=== PATIENT | male | born 1960 | race Caucasian/White ===

== ENCOUNTER → 2017-04-30 | Outpatient (CLI) | payer MEDICARE ==
--- NOTE | 2017-04-30 10:32 | US ---
EXAMINATION TYPE: US abdomen complete DATE OF EXAM: 04/30/2017 COMPARISON: NONE CLINICAL HISTORY: R10.9 ABD PAIN. RUQ pain, NPO EXAM MEASUREMENTS: Liver Length: 15.2 cm Gallbladder Wall: 0.2 cm CBD: 0.7 cm CHD: 0.5 cm Spleen: 8.3 cm Right Kidney: 10.0 x 4.8 x 4.4 cm Left Kidney: 10.3 x 4.6 x 5.0 cm Pancreas: wnl as visualized, main pancreatic duct = 2.5 mm WNL Liver: heterogenous, echogenic Gallbladder: appears enlarged Evidence for sonographic Ortiz's sign: neg CBD: Minimally dilated CHD: wnl Spleen: wnl Right Kidney: wnl Left Kidney: wnl Upper IVC: wnl Abd Aorta: No AAA seen The visualized liver is heterogeneously hyperechoic. The intrahepatic portion of the IVC and visuali zed abdominal aorta are within normal limits. There is no evidence of cholelithiasis. Common bile d uct is unremarkable. The visualized portions of the pancreas are homogenous. The spleen is unremark able. Kidneys are symmetric and free of hydronephrosis. No renal lesions are seen. IMPRESSION: No shadowing mobile gallstones or ultrasound evidence for acute cholecystitis.
== END | disposition home or self-care (01) ==
LOC: RADUSWWP 08:11
PROVIDERS: ATTEND Family Medicine
DX: R10.9 Unspecified abdominal pain (principal)
CPT/HCPCS: 76700

== ENCOUNTER → 2019-05-04 | Outpatient (CLI) | payer MEDICARE ==
--- NOTE | 2019-05-04 12:30 | CTL ---
EXAMINATION TYPE: CT Low Dose Lung DATE OF EXAM ORDERED: 05/04/2019 HISTORY: Personal history tobacco use. Lung cancer screening CT DLP: 60.[address] CTDI: 1.7 mGy Automated exposure control for dose reduction was used. SCREENING VISIT: 1 COMPARISON: None TECHNIQUE: Low dose computed tomography scan was performed through the chest at 1 mm thick sections a nd reconstructed images in the coronal plane at [address] DIAGNOSTIC QUALITY: Satisfactory FINDINGS: LUNG NODULES: Present, detailed below: Left lung a nodule with Nodule Size in Millimeters 9 mm was visualized with Nodule Type: Solid that is Nodule state: New in nature on image # CT Image slide number [id number] nodule shows smooth margins LUNGS: COPD: Severity: Severe Fibrosis: Severity: Mild Lymph nodes: Nonenlarged Other findings: Some upper lobe scarring, bullous emphysematous changes present RIGHT PLEURAL SPACE: Effusion: None Calcification: None Thickening: None Pneumothorax: None LEFT PLEURAL SPACE: Effusion: None Calcification: None Thickening: None Pneumothorax: None HEART: Heart Size: Small Coronary calcification: Moderate Pericardial effusion: None OTHER FINDINGS: Upper abdomen: Unremarkable Bony thorax: There is some thoracic spondylosis Supraclavicular region: Within normal limits Other: IMPRESSION: Probably suspicious Severe emphysematous changes are present. FOLLOW UP CT CHEST RECOMMENDATION: Low dose chest CT 3 months, consider follow-up PET/CT CT LUNG RAD: 4A
== END | disposition home or self-care (01) ==
LOC: RADCTMAIN 11:21
PROVIDERS: ATTEND Family Medicine
DX: Z12.2 Encounter for screening for malignant neoplasm of respiratory organs (principal); J43.9 Emphysema, unspecified; Z87.891 Personal history of nicotine dependence

== ENCOUNTER 2022-11-17 19:22 | Inpatient (IN) | payer MEDICARE ==
[~2022-11-17 19:22] MED LIST: IPRATROPIUM-ALBUTEROL 3 ML NEB INHALATION STA
[2022-11-17] MEDS ORDERED: IPRATROPIUM-ALBUTEROL 3 ML NEB INHALATION STA ×2 (19:35→20:00)
[2022-11-17 19:37] LABS: Glucose,Whole Blood 244 mg/dL (70-110)
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
--- NOTE | 2022-11-17 19:49 | XR ---
EXAMINATION TYPE: XR chest 1V portable DATE OF EXAM: 11/17/2022 7:37 PM COMPARISON: CT chest 05/04/2019. TECHNIQUE: XR chest 1V portable Frontal view of the chest. CLINICAL INDICATION:Male, 62 years old with history of dyspnea; FINDINGS: Lungs/Pleura: There is a large right pneumothorax. No evidence of focal consolidation or pleural effu krishna emphysema changes seen within the lungs bilaterally. Pulmonary vascularity: Unremarkable. Heart/mediastinum: Cardiomediastinal silhouette is unremarkable. Musculoskeletal: No acute osseous pathology. IMPRESSION: Large right pneumothorax.
[2022-11-17 19:55] LABS: Basophils # (A) 0.1 k/uL (0-0.2); Basophils % (A) 0 %; Eosinophils # (A) 0.4 k/uL (0-0.7); Eosinophils % (A) 3 %; HCT 39.7 % (39.0-53.0); HGB 12.9 gm/dL (13.0-17.5); Lymphocytes # (A) 2.9 k/uL (1.0-4.8); Lymphocytes % (A) 20 %; MCH 30.1 pg (25.0-35.0); MCHC 32.5 g/dL (31.0-37.0); MCV 92.7 fL (80.0-100.0); Mean Platelet Volume 6.9; Monocytes # (A) 0.6 k/uL (0-1.0); Monocytes % (A) 4 %; Neutrophils # (A) 10.2 k/uL (1.3-7.7); Neutrophils % (A) 71 %; Platelet Count 503 k/uL (150-450); RBC 4.28 m/uL (4.30-5.90); RDW 12.6 % (11.5-15.5); VBG PH 7.25 (7.31-7.41); WBC 14.3 k/uL (3.8-10.6)
[2022-11-17 20:08] LABS: INR 0.9 (<1.2); Partial Thromboplastin Time 22.3 sec (22.0-30.0); Prothrombin Time 9.5 sec (9.0-12.0)
[2022-11-17 20:12] LABS: ALT 21 U/L (4-49); AST 26 U/L (17-59); African American GFR (CKD) >90 (>60 ml/min/1.73 sqM); Albumin 4.4 g/dL (3.5-5.0); Alkaline Phosphatase 119 U/L (38-126); Anion Gap 11 mmol/L; Blood Urea Nitrogen 24 mg/dL (9-20); Calcium 9.6 mg/dL (8.4-10.2); Carbon Dioxide 33 mmol/L (22-30); Chloride 92 mmol/L (98-107); Glucose 230 mg/dL (74-99); Non-African American GFR(CKD) >90 (>60 ml/min/1.73 sqM); Sodium 136 mmol/L (137-145); Total Bilirubin 0.2 mg/dL (0.2-1.3); Total Protein 7.2 g/dL (6.3-8.2)
[2022-11-17] MEDS ORDERED: MORPHINE SULFATE 4 MG/ML SYRINGE IV STA ×2 (20:27→21:26)
[2022-11-17] MEDS ORDERED: LIDOCAINE 1% INJ 10MG/ML (10 ML MDV) SQ STA (20:27)
--- NOTE | 2022-11-17 21:10 | XR ---
EXAMINATION TYPE: XR chest 1V DATE OF EXAM: 11/17/2022 8:55 PM COMPARISON: Chest radiographs from TECHNIQUE: XR chest 1V Frontal view of the chest. CLINICAL INDICATION:Male, 62 years old with history of chest tube; FINDINGS: Lungs/Pleura: There is worsening of the right pneumothorax with the right upper lobe appearing more i nferior on today's exam with more consolidation in the lung base medially. There is increased lucency of the lung apices. Pulmonary vascularity: Unremarkable. Heart/mediastinum: Cardiomediastinal silhouette is unremarkable. Musculoskeletal: No acute osseous pathology. Other findings: None Lines/Tubes: Right thoracotomy tube in place with worsening of the pneumothorax. IMPRESSION: 1. Right thoracotomy tube in place with worsening of the pneumothorax with increased density of the lower lobes suggesting worsening atelectasis as well as the upper lobe as well visualized on this exa m. 2. There remains COPD changes.
[2022-11-17] MEDS ORDERED: NALOXONE 0.4 MG/ML 1 ML VIAL IV PRN (21:37)
[2022-11-17] MEDS ORDERED: HYDROmorphone 0.5 MG/0.5 ML SYRINGE IVP PRN (21:37)
[2022-11-17] MEDS: SODIUM CHLORIDE 0.9% 1,000 ML IV SCH (21:54)
[2022-11-18 01:40] LABS: Glucose,Whole Blood 100 mg/dL (70-110)
[2022-11-18] MEDS ORDERED: IPRATROPIUM-ALBUTEROL 3 ML NEB INHALATION PRN (02:24)
[2022-11-18] MEDS: MORPHINE SULFATE 4 MG/ML SYRINGE IV PRN ×2 (02:53→06:55)
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
[2022-11-18] MEDS: HYDROmorphone 1 MG/ML 1 ML SYRINGE IVP PRN ×5 (05:04→22:58)
[2022-11-18 06:12] LABS: Basophils % (A) 0 %; Eosinophils # (A) 0.2 k/uL (0-0.7); Eosinophils % (A) 3 %; HCT 37.3 % (39.0-53.0); HGB 11.7 gm/dL (13.0-17.5); Lymphocytes # (A) 1.5 k/uL (1.0-4.8); Lymphocytes % (A) 19 %; MCH 29.1 pg (25.0-35.0); MCHC 31.4 g/dL (31.0-37.0); MCV 92.9 fL (80.0-100.0); Monocytes # (A) 0.5 k/uL (0-1.0); Monocytes % (A) 7 %; Neutrophils # (A) 5.2 k/uL (1.3-7.7); Neutrophils % (A) 69 %; Platelet Count 362 k/uL (150-450); RBC 4.01 m/uL (4.30-5.90); RDW 12.8 % (11.5-15.5); WBC 7.5 k/uL (3.8-10.6)
[2022-11-18 06:23] LABS: African American GFR (CKD) >90 (>60 ml/min/1.73 sqM); Anion Gap 6 mmol/L; Blood Urea Nitrogen 24 mg/dL (9-20); Calcium 8.9 mg/dL (8.4-10.2); Carbon Dioxide 33 mmol/L (22-30); Chloride 97 mmol/L (98-107); Glucose 98 mg/dL (74-99); Non-African American GFR(CKD) >90 (>60 ml/min/1.73 sqM); Potassium 4.3 mmol/L (3.5-5.1); Sodium 136 mmol/L (137-145)
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
[2022-11-18] MEDS: PANTOPRAZOLE 40 MG TABLET PO SCH ×2 (08:32→20:35)
--- NOTE | 2022-11-18 08:33 | XR ---
EXAMINATION TYPE: XR chest 1V portable DATE OF EXAM: 11/18/2022 COMPARISON: 11/17/2022 HISTORY: Chest tube TECHNIQUE: Single frontal view of the chest is obtained. FINDINGS: Right-sided chest tube is seen and there is interval reduction in the size of the pneumoth orax which now measures approximately 25%. Diffuse emphysematous changes are seen. Heart size is norm al. Metallic stenting suspected overlying the left hilum. No pleural effusion. No interstitial edema. Atherosclerotic change aorta. IMPRESSION: 1. Right-sided pneumothorax reduced in size now measuring approximately 25%. 2. Diffuse emphysema.
[2022-11-18] MEDS: IPRATROPIUM-ALBUTEROL 3 ML NEB INHALATION SCH ×4 (08:52→20:21)
[2022-11-18] MEDS: SYMBICORT 160-4.5 MCG INHALER INHALATION SCH ×2 (08:52→20:21)
[2022-11-18] MEDS ORDERED: FAMOTIDINE 20 MG/2 ML VIAL IV SCH (09:00)
[2022-11-18] MEDS: lisinopriL 10 MG TAB PO SCH (09:30)
--- NOTE | 2022-11-18 10:00 | XR ---
EXAMINATION TYPE: XR chest 1V portable DATE OF EXAM: 11/18/2022 HISTORY: Follow-up pneumothorax COMPARISON: Study from 4:03 AM same day TECHNIQUE: Single view of the chest is submitted. FINDINGS: Right-sided chest tube appears to have been repositioned. There is persistence of right-sided pneumot horax however slightly improved with right apical pleural distance of 2.9 cm currently versus 4.6 cm previously. Pneumothorax estimated at between 15 and 20%. Demonstrated are scattered senescent parenchymal change. There is no evidence for focal infiltrate. The heart is stable. Hilar and mediastinal structures are within normal limits. Degenerative changes are seen of the dorsal spine. IMPRESSION: 1. Persistent but improving right apical pneumothorax.
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
[2022-11-18] MEDS: SODIUM CHLORIDE 0.9% 1,000 ML IV SCH (13:44)
[2022-11-18] MEDS: ACETAMINOPHEN TAB 325 MG TAB PO PRN (16:11)
[2022-11-18] MEDS ORDERED: SYMBICORT 160-4.5 MCG INHALER INHALATION SCH (20:00)
[2022-11-18] MEDS: HEPARIN SODIUM,PORCINE/PF 5,000 UNIT/0.5 ML SYRINGE SQ SCH (20:35)
[2022-11-19] MEDS: SODIUM CHLORIDE 0.9% 1,000 ML IV SCH ×2 (00:30→12:19)
[2022-11-19] MEDS: HYDROmorphone 1 MG/ML 1 ML SYRINGE IVP PRN ×7 (02:22→22:44)
[2022-11-19 06:08] LABS: HGB 11.2 gm/dL (13.0-17.5); MCH 31.1 pg (25.0-35.0); MCHC 32.9 g/dL (31.0-37.0); MCV 94.7 fL (80.0-100.0); Mean Platelet Volume 6.7; Platelet Count 332 k/uL (150-450); RBC 3.59 m/uL (4.30-5.90); RDW 12.7 % (11.5-15.5); WBC 7.5 k/uL (3.8-10.6)
[2022-11-19 06:20] LABS: African American GFR (CKD) >90 (>60 ml/min/1.73 sqM); Anion Gap 1 mmol/L; Blood Urea Nitrogen 16 mg/dL (9-20); Calcium 8.5 mg/dL (8.4-10.2); Carbon Dioxide 37 mmol/L (22-30); Chloride 97 mmol/L (98-107); Glucose 103 mg/dL (74-99); Non-African American GFR(CKD) >90 (>60 ml/min/1.73 sqM); Potassium 4.5 mmol/L (3.5-5.1); Sodium 135 mmol/L (137-145)
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
[2022-11-19] MEDS: IPRATROPIUM-ALBUTEROL 3 ML NEB INHALATION SCH ×4 (08:00→19:26)
[2022-11-19] MEDS ORDERED: NON FORMULARY DRUG (Tiotropium Bromide [Spiriva Handihaler] 18 MCG Cap.W.Dev) INHALATION SCH (08:00)
[2022-11-19] MEDS: SYMBICORT 160-4.5 MCG INHALER INHALATION SCH ×2 (08:02→19:27)
--- NOTE | 2022-11-19 08:17 | XR ---
EXAMINATION TYPE: XR chest 1V portable DATE OF EXAM: 11/19/2022 COMPARISON: 11/18/2022 HISTORY: Right pneumothorax TECHNIQUE: Single frontal view of the chest is obtained. FINDINGS: Right sided Thora vent noted. There is interval slight increase size of the pneumothorax n ow measuring 25%. Diffuse emphysematous changes. Heart size normal. Atherosclerotic change aorta. Met allic stents overlying the left hilum. IMPRESSION: 1. COPD. The pneumothorax appears to measure approximately 25% exam . This is slightly increased in s ize from prior exam
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
[2022-11-19] MEDS: PANTOPRAZOLE 40 MG TABLET PO SCH ×2 (08:57→20:22)
[2022-11-19] MEDS: HEPARIN SODIUM,PORCINE/PF 5,000 UNIT/0.5 ML SYRINGE SQ SCH ×2 (08:57→20:22)
[2022-11-19] MEDS: ACETAMINOPHEN TAB 325 MG TAB PO PRN ×2 (08:57→20:22)
[2022-11-19] MEDS: lisinopriL 10 MG TAB PO SCH (08:57)
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
[2022-11-20] MEDS: HYDROmorphone 1 MG/ML 1 ML SYRINGE IVP PRN ×7 (02:09→23:10)
[2022-11-20] MEDS: SODIUM CHLORIDE 0.9% 1,000 ML IV SCH (04:30)
[2022-11-20 06:08] LABS: Basophils % (A) 0 %; Eosinophils # (A) 0.2 k/uL (0-0.7); Eosinophils % (A) 3 %; HCT 32.9 % (39.0-53.0); HGB 10.7 gm/dL (13.0-17.5); Lymphocytes # (A) 1.3 k/uL (1.0-4.8); Lymphocytes % (A) 22 %; MCH 30.8 pg (25.0-35.0); MCHC 32.7 g/dL (31.0-37.0); MCV 94.2 fL (80.0-100.0); Mean Platelet Volume 7.2; Monocytes # (A) 0.5 k/uL (0-1.0); Monocytes % (A) 8 %; Neutrophils % (A) 66 %; Platelet Count 336 k/uL (150-450); RBC 3.49 m/uL (4.30-5.90); RDW 12.6 % (11.5-15.5)
[2022-11-20 06:17] LABS: African American GFR (CKD) >90 (>60 ml/min/1.73 sqM); Anion Gap 1 mmol/L; Blood Urea Nitrogen 11 mg/dL (9-20); Calcium 8.6 mg/dL (8.4-10.2); Carbon Dioxide 37 mmol/L (22-30); Chloride 95 mmol/L (98-107); Glucose 103 mg/dL (74-99); Non-African American GFR(CKD) >90 (>60 ml/min/1.73 sqM); Sodium 133 mmol/L (137-145)
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
[2022-11-20] MEDS: lisinopriL 10 MG TAB PO SCH (08:28)
[2022-11-20] MEDS: HEPARIN SODIUM,PORCINE/PF 5,000 UNIT/0.5 ML SYRINGE SQ SCH ×2 (08:28→19:55)
[2022-11-20] MEDS: PANTOPRAZOLE 40 MG TABLET PO SCH ×2 (08:28→19:55)
[2022-11-20] MEDS: ACETAMINOPHEN TAB 325 MG TAB PO PRN ×2 (08:28→16:31)
--- NOTE | 2022-11-20 08:43 | XR ---
EXAMINATION TYPE: XR chest 1V portable DATE OF EXAM: 11/20/2022 COMPARISON: 11/19/2022 HISTORY: Right pneumothorax TECHNIQUE: Single frontal view of the chest is obtained. FINDINGS: There is near complete resolution of right-sided pneumothorax. Diffuse emphysematous epps es is seen in the persistent left lower lobe infiltrate and tiny bilateral pleural thickening or effu krishna.. The cardiac silhouette size is within normal limits. The osseous structures are intact. Jossy st tube stable. IMPRESSION: 1. Severe emphysema with interval near complete resolution of right-sided pneumothorax. Chest tube st able.
[2022-11-20] MEDS: SYMBICORT 160-4.5 MCG INHALER INHALATION SCH ×2 (08:44→20:14)
[2022-11-20] MEDS: IPRATROPIUM-ALBUTEROL 3 ML NEB INHALATION SCH ×4 (08:44→20:14)
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
[2022-11-21] MEDS: HYDROmorphone 1 MG/ML 1 ML SYRINGE IVP PRN ×6 (03:45→23:40)
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
[2022-11-21] MEDS: HEPARIN SODIUM,PORCINE/PF 5,000 UNIT/0.5 ML SYRINGE SQ SCH ×2 (07:52→20:15)
[2022-11-21] MEDS: lisinopriL 10 MG TAB PO SCH (07:52)
[2022-11-21] MEDS: PANTOPRAZOLE 40 MG TABLET PO SCH ×2 (07:52→20:15)
[2022-11-21] MEDS: IPRATROPIUM-ALBUTEROL 3 ML NEB INHALATION SCH ×4 (08:13→20:02)
[2022-11-21] MEDS: SYMBICORT 160-4.5 MCG INHALER INHALATION SCH ×2 (08:14→20:02)
--- NOTE | 2022-11-21 09:16 | P.PN ---
Subjective Progress Note Date: 11/20/22 Pt evaluated in the ICU, on 8 LPM O2 via NC. CXR today showing resolution of pneumothorax. He continues to endorse shortness of breath, notes minimal cough and denies hemoptysis. Labs are stable. Objective - Vital Signs Vital signs: Vital Signs Temp 98.7 F 11/21/22 07:54 Pulse 97 11/21/22 08:24 Resp 18 11/21/22 07:54 BP 165/80 11/21/22 07:54 Pulse Ox 95 11/21/22 08:17 FiO2 80 11/18/22 08:50 Intake & Output 11/20/22 11/21/22 11/21/22 18:59 06:59 18:59 Intake Total 225 240 Output Total 0 850 Balance 225 -850 240 Intake: IV 225 Sodium Chloride 0.9% 1, 225 000 ml @ 75 mls/hr IV . [id number] [facility] Rx#:[id number] Oral 240 Output: Urine 0 850 Other: Voiding Method Urinal Urinal # Voids 2 - Exam Gen: thin, elderly NAD CV: RRR, no murmur Lungs: diminished air entry throughout Abd: soft, nontender, non distended - Labs CBC & Chem 7: 11/20/22 05:51 11/20/22 05:51 Assessment and Plan Plan: Continue with present medical regimen, continue home inhaler, lisinopril. Continue with protonix. Chest tube per pulmonology
--- NOTE | 2022-11-21 09:36 | XR ---
EXAMINATION TYPE: XR chest 1V portable DATE OF EXAM: 11/21/2022 COMPARISON: 11/20/2022 HISTORY: Follow-up pneumothorax TECHNIQUE: Single frontal view of the chest is obtained. FINDINGS: There is a small approximately 5% right apical pneumothorax with chest tube in position. D iffuse emphysematous changes are seen and there is metallic stents overlying the left hilum. Atherosc lerotic change aorta. Heart size normal. No overt failure. Arthropathy of the shoulders. IMPRESSION: 1. 5% right apical pneumothorax. 2. Diffuse emphysema.
[2022-11-21] MEDS: ACETAMINOPHEN TAB 325 MG TAB PO PRN (12:01)
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
[2022-11-22] MEDS: HYDROmorphone 1 MG/ML 1 ML SYRINGE IVP PRN ×7 (04:03→23:39)
--- NOTE | 2022-11-22 07:25 | XR ---
EXAMINATION TYPE: XR chest 1V portable DATE OF EXAM: 11/22/2022 HISTORY: Follow-up pneumothorax. COMPARISON: 11/21/2022 TECHNIQUE: Single view of the chest is submitted. FINDINGS: Right apical pleural catheter is in place. Pneumothorax persists although is smaller in size and is e stimated at less than 5%. Moderate emphysematous changes seen bilaterally. There is no evidence for focal infiltrate. The heart is stable. Hilar and mediastinal structures are within normal limits. Degenerative changes are seen of the dorsal spine. IMPRESSION: 1. Right apical pleural catheter is in place. Pneumothorax persists although is smaller in size and is estimated at less than 5%.
[2022-11-22] MEDS ORDERED: CYCLOBENZAPRINE 10 MG TAB PO PRN (08:16)
[2022-11-22] MEDS ORDERED: MAGNESIUM HYDROXIDE 2,400 MG/10 ML CUP PO PRN (08:19)
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
[2022-11-22] MEDS: IPRATROPIUM-ALBUTEROL 3 ML NEB INHALATION SCH ×4 (08:28→20:59)
[2022-11-22] MEDS: SYMBICORT 160-4.5 MCG INHALER INHALATION SCH ×2 (08:28→20:59)
[2022-11-22] MEDS: lisinopriL 10 MG TAB PO SCH (09:53)
[2022-11-22] MEDS: PANTOPRAZOLE 40 MG TABLET PO SCH ×2 (09:53→20:12)
[2022-11-22] MEDS: HEPARIN SODIUM,PORCINE/PF 5,000 UNIT/0.5 ML SYRINGE SQ SCH ×2 (09:54→20:12)
[2022-11-22 10:09] LABS: Chloride 90 mmol/L (98-107); Glucose 154 mg/dL (74-99); Potassium 4.7 mmol/L (3.5-5.1); Sodium 135 mmol/L (137-145)
[2022-11-22 10:10] LABS: African American GFR (CKD) >90 (>60 ml/min/1.73 sqM); Blood Urea Nitrogen 20 mg/dL (9-20); Calcium 9.1 mg/dL (8.4-10.2); Non-African American GFR(CKD) >90 (>60 ml/min/1.73 sqM)
[2022-11-22 10:16] LABS: Anion Gap 7 mmol/L
[2022-11-22 10:43] LABS: Carbon Dioxide 38 mmol/L (22-30)
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
[2022-11-22] MEDS: SENNOSIDES-DOCUSATE SODIUM 1 EACH TAB PO SCH (20:12)
[2022-11-22] MEDS: MONTELUKAST 10 MG TAB PO SCH (20:12)
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
[2022-11-23] MEDS: HYDROmorphone 1 MG/ML 1 ML SYRINGE IVP PRN ×6 (04:33→21:19)
--- NOTE | 2022-11-23 07:10 | XR ---
EXAMINATION TYPE: XR chest 2V DATE OF EXAM: 11/23/2022 HISTORY: Shortness of breath. COMPARISON: 11/22/2022 TECHNIQUE: Single view of the chest is submitted. FINDINGS: Significant enlargement in right-sided pneumothorax estimated at 40%. Right apical pleural catheter r edemonstrated. There is no evidence for focal infiltrate. Hyperinflation compatible with COPD. The heart is stable. Hilar and mediastinal structures are within normal limits. Degenerative changes are seen of the dorsal spine. IMPRESSION: 1. Significant enlargement in right-sided pneumothorax estimated at 40%. Right apical pleural cathet er redemonstrated. Miroslava the patient's nurse was notified of this finding via telephone at 7:07 AM on 11/23/2022
[2022-11-23] MEDS: SYMBICORT 160-4.5 MCG INHALER INHALATION SCH ×2 (07:53→20:27)
[2022-11-23] MEDS: IPRATROPIUM-ALBUTEROL 3 ML NEB INHALATION SCH ×4 (07:53→20:27)
[2022-11-23] MEDS: HEPARIN SODIUM,PORCINE/PF 5,000 UNIT/0.5 ML SYRINGE SQ SCH ×2 (08:25→21:18)
[2022-11-23] MEDS: lisinopriL 10 MG TAB PO SCH (08:25)
[2022-11-23] MEDS: PANTOPRAZOLE 40 MG TABLET PO SCH ×2 (08:25→21:19)
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
[2022-11-23] MEDS: ACETAMINOPHEN TAB 325 MG TAB PO PRN ×2 (11:40→21:18)
[2022-11-23] MEDS ORDERED: HYDROCORTISONE 1% CREAM 30 GM TUBE TOPICAL PRN (11:50)
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
[2022-11-23] MEDS: MONTELUKAST 10 MG TAB PO SCH (21:19)
[2022-11-23] MEDS: SENNOSIDES-DOCUSATE SODIUM 1 EACH TAB PO SCH (21:19)
[2022-11-24] MEDS: HYDROmorphone 1 MG/ML 1 ML SYRINGE IVP PRN ×8 (00:30→21:40)
[2022-11-24] MEDS: ACETAMINOPHEN TAB 325 MG TAB PO PRN (05:33)
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
[2022-11-24] MEDS: SYMBICORT 160-4.5 MCG INHALER INHALATION SCH ×2 (08:24→20:43)
[2022-11-24] MEDS: IPRATROPIUM-ALBUTEROL 3 ML NEB INHALATION SCH ×4 (08:25→20:43)
[2022-11-24] MEDS: HEPARIN SODIUM,PORCINE/PF 5,000 UNIT/0.5 ML SYRINGE SQ SCH ×2 (08:36→20:37)
[2022-11-24] MEDS: PANTOPRAZOLE 40 MG TABLET PO SCH ×2 (08:36→20:40)
[2022-11-24] MEDS: lisinopriL 10 MG TAB PO SCH (08:36)
--- NOTE | 2022-11-24 09:47 | XR ---
EXAMINATION TYPE: XR chest 1V portable DATE OF EXAM: 11/24/2022 COMPARISON: 11/23/2022 HISTORY: Pneumothorax TECHNIQUE: Single frontal view of the chest is obtained. FINDINGS: Right-sided chest tube seen with mild improvement in approximately 20% pneumothorax. There is subcutaneous emphysema. Diffuse emphysematous changes are seen. Nodule overlying the left lateral midlung likely related to nipple shadow. No new acute infiltrate. Osseous structures are stable. Heart size normal. Metallic stents in the left hilum. Atherosclerotic change aorta. Basilar subsegmen brant atelectasis favored over pneumonia. IMPRESSION: 1. Mild improvement in the right-sided pneumothorax now measuring 20%.
[2022-11-24] MEDS ORDERED: LORATADINE 10 MG TAB PO SCH (10:30)
[2022-11-24] MEDS ORDERED: FLUTICASONE 50MCG/SPRAY NASAL 16GM EA NOSTRIL SCH (10:30)
[2022-11-24 11:33] VITALS: BMI 20.7
[2022-11-24] MEDS: FLUTICASONE 50MCG/SPRAY NASAL 16GM EA NOSTRIL SCH (12:28)
[2022-11-24] MEDS: LORATADINE 10 MG TAB PO SCH (12:28)
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
[2022-11-24] MEDS: SENNOSIDES-DOCUSATE SODIUM 1 EACH TAB PO SCH (20:36)
[2022-11-24] MEDS: MONTELUKAST 10 MG TAB PO SCH (20:37)
[2022-11-25] MEDS: HYDROmorphone 1 MG/ML 1 ML SYRINGE IVP PRN ×5 (00:43→13:05)
[2022-11-25 01:36] VITALS: RESP 18
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
--- NOTE | 2022-11-25 08:47 | XR ---
EXAMINATION TYPE: XR chest 1V portable DATE OF EXAM: 11/25/2022 COMPARISON: 11/24/2022 HISTORY: Pneumothorax TECHNIQUE: Single frontal view of the chest is obtained. FINDINGS: Right-sided chest tube seen with mild improvement in approximately 5% pneumothorax. There is subcutaneous emphysema. Diffuse emphysematous changes are seen. Nodule overlying the left lateral midlung likely related to nipple shadow. No new acute infiltrate. Osseous structures are stable. Hear t size normal. Metallic stents in the left hilum. Atherosclerotic change aorta. Basilar subsegmental atelectasis favored over pneumonia. IMPRESSION: Improvement in the right-sided pneumothorax now measuring 5%.
[2022-11-25] MEDS: IPRATROPIUM-ALBUTEROL 3 ML NEB INHALATION SCH ×2 (08:52→12:22)
[2022-11-25] MEDS: SYMBICORT 160-4.5 MCG INHALER INHALATION SCH (08:52)
[2022-11-25] MEDS: LORATADINE 10 MG TAB PO SCH (09:36)
[2022-11-25] MEDS: HEPARIN SODIUM,PORCINE/PF 5,000 UNIT/0.5 ML SYRINGE SQ SCH (09:36)
[2022-11-25] MEDS: lisinopriL 10 MG TAB PO SCH (09:36)
[2022-11-25] MEDS: PANTOPRAZOLE 40 MG TABLET PO SCH (09:36)
[2022-11-25] MEDS: FLUTICASONE 50MCG/SPRAY NASAL 16GM EA NOSTRIL SCH (09:37)
[2022-11-25 12:11] VITALS: BP 153/87; PULSE 108; TEMP 98
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
== END 2022-11-25 13:52 | disposition short-term general hospital (02) | DRG 199 ==
LOC: EC 19:22 → 3SCARD 21:37 → 2SICU 22:34 → 3SCARD 11-20 15:20
PROVIDERS: ADMIT Family Medicine; ATTEND Family Medicine
PROC: 5A09357 Assistance with Respiratory Ventilation, Less than 24 Consecutive Hours, Continuous Positive Airway Pressure (ICD-10-PCS; principal; 2022-11-17)
PROC: 5A0935A Assistance with Respiratory Ventilation, Less than 24 Consecutive Hours, High Flow/Velocity Cannula (ICD-10-PCS; 2022-11-18)
DX: J93.83 Other pneumothorax (principal); J96.21 Acute and chronic respiratory failure with hypoxia; J96.22 Acute and chronic respiratory failure with hypercapnia; Z99.81 Dependence on supplemental oxygen; J43.9 Emphysema, unspecified; I10 Essential (primary) hypertension; G89.29 Other chronic pain; M54.50 Low back pain, unspecified; R00.0 Tachycardia, unspecified; Z96.89 Presence of other specified functional implants; Z87.891 Personal history of nicotine dependence; Z80.1 Family history of malignant neoplasm of trachea, bronchus and lung; Z79.899 Other long term (current) drug therapy; Z79.51 Long term (current) use of inhaled steroids; Z28.310 Unvaccinated for COVID-19
CPT/HCPCS: 36415; 71045; 71046; 80048; 80053; 82803; 83605; 83880; 84484; 85025; 85027; 85379; 85610; 85730; 87636; 93005; 94640; 94660; 94760; 96365; 96366; 96375; 96376; 99291

== ENCOUNTER 2022-12-13 04:44 | Inpatient (IN) | payer MEDICARE, OTHER ==
[2022-12-13] MEDS ORDERED: SUCCINYLCHOLINE CHLORIDE 200 MG/10 ML VIAL IV STA (04:58)
[2022-12-13] MEDS ORDERED: ETOMIDATE 2 MG/ML 10 ML VIAL IVP STA (04:58)
[2022-12-13] MEDS ORDERED: MIDAZOLAM 1 MG/ML 5 ML VIAL IV STA ×2 (05:04→05:05)
[2022-12-13 05:08] LABS: HCT 34.9 % (39.0-53.0); HGB 10.6 gm/dL (13.0-17.5); Hypochromasia Moderate; MCH 29.4 pg (25.0-35.0); MCHC 30.5 g/dL (31.0-37.0); MCV 96.4 fL (80.0-100.0); RBC 3.62 m/uL (4.30-5.90); WBC 15.6 k/uL (3.8-10.6)
[2022-12-13] MEDS: NOREPINEPHRINE 4 MG in SODIUM CHLORIDE 0.9% 250 ML IV ONE ×2 (05:18→16:20)
[2022-12-13 05:21] LABS: ALT 51 U/L (4-49); AST 70 U/L (17-59); African American GFR (CKD) >90 (>60 ml/min/1.73 sqM); Albumin 3.3 g/dL (3.5-5.0); Alkaline Phosphatase 101 U/L (38-126); Anion Gap 11 mmol/L; Blood Urea Nitrogen 31 mg/dL (9-20); Calcium 9.1 mg/dL (8.4-10.2); Carbon Dioxide 26 mmol/L (22-30); Chloride 98 mmol/L (98-107); Glucose 354 mg/dL (74-99); Non-African American GFR(CKD) >90 (>60 ml/min/1.73 sqM); Sodium 135 mmol/L (137-145); Total Bilirubin 0.3 mg/dL (0.2-1.3); Total Protein 5.8 g/dL (6.3-8.2)
[2022-12-13] MEDS ORDERED: ALBUTEROL NEBULIZED 2.5 MG/3 ML INHALATION STA (05:23)
[2022-12-13] MEDS ORDERED: IPRATROPIUM 0.5 MG/2.5 ML NEBU INHALATION STA (05:24)
[2022-12-13 05:29] LABS: Band Neutrophils % 2 %; INR 0.9 (<1.2); Lymphocytes # (M) 4.84 k/uL (1.0-4.8); Monocytes # (M) 2.03 k/uL (0-1.0); Neutrophils % (M) 38 %; Nucleated Red Blood Cells 0 /100 WBC (0-0); Prothrombin Time 9.5 sec (9.0-12.0); Total Cells Counted 100
[2022-12-13 05:30] LABS: Platelet Count 696 k/uL (150-450)
[2022-12-13] MEDS: MAGNESIUM SULFATE-D5W PMX 1 GM in DEXTROSE/WATER 1 100ML.BAG IVPB SCH ×2 (05:32→05:57)
[2022-12-13 05:34] LABS: Partial Thromboplastin Time 20.3 sec (22.0-30.0)
[2022-12-13 05:42] LABS: ABG Base Excess -1.3 mmol/L; ABG HCO3 26 mmol/L (21-25); ABG PCO2 55 mmHg (35-45); ABG PH 7.28 (7.35-7.45); ABG PO2 >400 mmHg (83-108); ABG TCO2 27 mmol/L (19-24); Allen Test Performed? Yes
[2022-12-13 05:44] LABS: VBG PH 7.02 (7.31-7.41)
[2022-12-13] MEDS: MIDAZOLAM 1 MG/ML 5 ML VIAL IV PRN ×2 (05:46→07:00)
[2022-12-13 05:48] LABS: Appearance,Urine Clear (Clear); Bacteria,Urine Rare /hpf; Bilirubin,Urine Negative (Negative); Blood,Urine Negative (Negative); Color,Urine Light Yellow; Glucose,Urine (UA) 4+ (Negative); Hyaline Casts,Urine 25 /lpf (0-2); Ketones,Urine Negative (Negative); Leukocyte Esterase,Urine Negative (Negative); Mucus,Urine Rare /hpf; Nitrite,Urine Negative (Negative); PH, Urine 5.5 (5.0-8.0); Protein,Urine 2+ (Negative); RBC,Urine 4 /hpf (0-5); Specific Gravity,Urine 1.016 (1.001-1.035); Urobilinogen,Urine <2.0 mg/dL (<2.0); WBC,Urine 8 /hpf (0-5)
--- NOTE | 2022-12-13 05:50 | XR ---
EXAM: XR Chest, 1 View CLINICAL HISTORY: difficulty breathing. Additional history including past medical and surgical history was not provided, which limits evaluation. TECHNIQUE: Frontal view of the chest. COMPARISON: 11/25/2022. FINDINGS: Lungs: Stent-like material overlies the right hilum, new since prior study. Pleural space: See below. Heart: Unchanged. No cardiomegaly. Mediastinum: Unchanged. Bones/joints: Unchanged. Tubes, lines and devices: ET tube tip is approximately 4 cm above the riley. Distal end of NG tube overlies left upper quadrant is likely within the stomach. Right-sided chest tube is noted. Moderate right pneumothorax with compressive atelectasis of the right lung, although infiltrates cannot be definitively excluded, new since prior study. IMPRESSION: 1. ET tube tip is approximately 4 cm above the riley. 2. Right-sided chest tube is noted. Moderate right pneumothorax with compressive atelectasis of the right lung, although infiltrates cannot be definitively excluded, new since prior study. 3. Stent-like material overlies the right hilum, new since prior study. Correlate clinically.
[2022-12-13] MEDS ORDERED: VANCOMYCIN IV PER PHARMACY 1 EACH MISC MISCELLANE PRN ×2 (06:07→09:39)
[2022-12-13] MEDS ORDERED: PIPERACILLIN-TAZOBACTAM 3.375 GM in SODIUM CHLORIDE 0.9% 100 ML IVPB STA (06:07)
[2022-12-13] MEDS: SODIUM CHLORIDE 0.9% 500 ML 500 ML IV SCH ×2 (06:09→06:33)
[2022-12-13] MEDS ORDERED: VANCOMYCIN 1,000 MG in SODIUM CHLORIDE 0.9% 250 ML IVPB STA (06:11)
[2022-12-13] MEDS ORDERED: NALOXONE 0.4 MG/ML 1 ML VIAL IV PRN (06:31)
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
--- NOTE | 2022-12-13 07:04 | XR ---
EXAM: XR Chest, 1 View CLINICAL HISTORY: ITS.REASON XR Reason: Line placement TECHNIQUE: Frontal view of the chest. COMPARISON: Earlier the same day. FINDINGS/IMPRESSION: Repositioning of right-sided chest tube. Reexpansion of the right lung with residual trace/small right pneumothorax, improved since prior study. Interval placement of right-sided IJ subtle venous line with tip overlying the right atrium. No other significant interval change. Continued attention on follow-up is recommended.
[2022-12-13 07:24] VITALS: RESP 20
--- NOTE | 2022-12-13 07:51 | CT ---
EXAMINATION TYPE: CT angio chest DATE OF EXAM: 12/13/2022 COMPARISON: None HISTORY: Shortness of breath. Elevated d-dimer. CT DLP: 356.6 mGycm CONTRAST: CT chest with contrast and 3D reconstruction with MIP imaging is performed with IV Contrast, patient injected with 80ml mL of Isovue 370. Contrast-enhanced CT of the chest was performed through the course of the pulmonary arteries with nyla g and mediastinal window settings submitted. 3D reconstruction with MIP imaging was also performed. PULMONARY ARTERIES: There is enlargement of the main pulmonary artery with changes of pulmonary noreen rial hypertension. The pulmonary arteries and their major tributaries are patent. I do not see evide nce for sizable filling defect to suggest pulmonary embolic process. LUNGS: There is collapse of the right upper lobe with the abrupt termination of the right upper lobe bronchus which may reflect mucous plugging. There is persistent right-sided pneumothorax with chest t ube in place. Pneumothorax estimated at 15%. There is a large emphysematous bulla noted. Severe emphy sematous change noted bilaterally. There is atelectasis at the left medial lung base. Small right-edwin ed pleural effusion is noted. Bronchiectasis with mucus plugging left lower lobe. Endotracheal tube i s appropriately placed. NG tube is seen coursing into the stomach. Right IJ central venous line is in place. MEDIASTINUM: Thoracic aorta is of normal caliber, and the heart is mildly enlarged. No evidence for mediastinal mass. No mediastinal lymph nodes greater than 1cm. HILAR STRUCTURES: No evidence for mass. No hilar lymph nodes greater than 1 cm. UPPER ABDOMEN: No significant abnormality is seen. IMPRESSION: 1. No evidence for Pulmonary embolism at this time. 2. Persistent right-sided pneumothorax with chest tube in place. Pneumothorax estimated at approximat elean 15%. 3. There is collapse of the right upper lobe with the abrupt termination of the right upper lobe bron chus which may reflect mucous plugging. 4. Severe emphysematous change with large bulla noted within the right lung measuring 10 x 6.5 cm. 5. Atelectasis with mucus plugging left lower lobe medially.
[2022-12-13 07:56] LABS: Glucose,Whole Blood 124 mg/dL (70-110)
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
[2022-12-13] MEDS ORDERED: FAMOTIDINE 20 MG/2 ML VIAL IV SCH (09:00)
[2022-12-13] MEDS ORDERED: SODIUM CHLORIDE 0.9% 1,000 ML IV SCH (09:30)
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
[2022-12-13] MEDS ORDERED: ENOXAPARIN 40 MG/0.4 ML SYRINGE SQ SCH (09:45)
[2022-12-13] MEDS ORDERED: IPRATROPIUM-ALBUTEROL 3 ML NEB INHALATION PRN (10:00)
[2022-12-13] MEDS ORDERED: HYDROmorphone 0.5 MG/0.5 ML SYRINGE IVP SCH (10:00)
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
[2022-12-13] MEDS ORDERED: methylPREDNISolone SOD SUCCI 40 MG/ML 1 ML VIAL IV SCH (12:00)
[2022-12-13 12:15] LABS: Glucose,Whole Blood 159 mg/dL (70-110)
[2022-12-13 12:47] VITALS: BMI 20.3
[2022-12-13] MEDS: HYDROmorphone 1 MG/ML 1 ML SYRINGE IVP SCH ×2 (12:52→16:23)
[2022-12-13] MEDS ORDERED: HYDROmorphone 1 MG/ML 1 ML SYRINGE IM SCH (13:00)
[2022-12-13 13:38] LABS: ABG HCO3 28 mmol/L (21-25); ABG Oxygen Saturation 99.5 % (94-97); ABG PCO2 39 mmHg (35-45); ABG PH 7.47 (7.35-7.45); ABG PO2 138 mmHg (83-108); ABG TCO2 29 mmol/L (19-24)
[2022-12-13 13:40] LABS: Allen Test Performed? YES
[2022-12-13] MEDS: IPRATROPIUM-ALBUTEROL 3 ML NEB INHALATION SCH ×2 (15:00)
[2022-12-13] MEDS ORDERED: PIPERACILLIN-TAZOBACTAM 3.375 GM in SODIUM CHLORIDE 0.9% 100 ML IVPB SCH (16:00)
[2022-12-13 16:12] VITALS: TEMP 98.4
[2022-12-13 16:36] VITALS: BP 117/74; PULSE 74
[2022-12-13] MEDS ORDERED: VANCOMYCIN 1,000 MG in SODIUM CHLORIDE 0.9% 250 ML IVPB SCH (18:00)
[2022-12-13] MEDS ORDERED: HEPARIN SODIUM,PORCINE/PF 5,000 UNIT/0.5 ML SYRINGE SQ SCH (21:00)
== END 2022-12-13 16:38 | disposition short-term general hospital (02) | DRG 871 ==
LOC: EC 04:44 → 2SICU 06:31
PROVIDERS: ADMIT Hospitalist; ATTEND Hospitalist
PROC: 02HV33Z Insertion of Infusion Device into Superior Vena Cava, Percutaneous Approach (ICD-10-PCS; principal; 2022-12-13)
PROC: 5A1935Z Respiratory Ventilation, Less than 24 Consecutive Hours (ICD-10-PCS; 2022-12-13)
PROC: 0BH17EZ Insertion of Endotracheal Airway into Trachea, Via Natural or Artificial Opening (ICD-10-PCS; 2022-12-13)
DX: A41.9 Sepsis, unspecified organism (principal); J18.9 Pneumonia, unspecified organism; J96.21 Acute and chronic respiratory failure with hypoxia; J96.22 Acute and chronic respiratory failure with hypercapnia; J47.0 Bronchiectasis with acute lower respiratory infection; J90 Pleural effusion, not elsewhere classified; J93.82 Other air leak; J93.9 Pneumothorax, unspecified; J98.11 Atelectasis; D64.9 Anemia, unspecified; G89.29 Other chronic pain; I10 Essential (primary) hypertension; I25.10 Atherosclerotic heart disease of native coronary artery without angina pectoris; J43.9 Emphysema, unspecified; Z66 Do not resuscitate; Z79.51 Long term (current) use of inhaled steroids; Z79.899 Other long term (current) drug therapy; Z80.9 Family history of malignant neoplasm, unspecified; Z83.3 Family history of diabetes mellitus; Z99.81 Dependence on supplemental oxygen; Z87.891 Personal history of nicotine dependence
CPT/HCPCS: 31500; 36415; 36556; 36600; 71045; 71275; 80053; 81001; 82803; 82805; 83036; 83605; 84145; 84484; 85025; 85379; 85610; 85730; 87040; 87070; 87205; 87635; 93005; 94002; 96361; 96365; 96366; 96368; 99291